=== PATIENT | female | born 1960 | race Caucasian/White ===

== ENCOUNTER 2019-12-16 11:32 | Outpatient (CLI) | payer MEDICAID, SELFPAY ==
--- NOTE | 2019-12-16 11:53 | XR_ITS ---
WS: [id number] PROCEDURE: XR chest 2V* [id number] CLINICAL INFORMATION: COUGH COMPARISON: None. FINDINGS: Heart: Cardiomegaly. Prominent left ventricle. Lungs: Chronic emphysematous changes. No acute pulmonary infiltrates. No focal pneumonia. Bones: Mild thoracic kyphosis. XR/XR chest 2V* [id number] IMPRESSION: 1. Cardiomegaly. 2. No focal pneumonia. 3. Chronic emphysematous changes.
== END 2019-12-16 11:33 | disposition home or self-care (01) ==
LOC: RADWPI 11:39
PROVIDERS: PCP Family Medicine; Visit Provider Specialist
DX: J43.9 Emphysema, unspecified (principal); R05 Cough; I51.7 Cardiomegaly
CPT/HCPCS: 71046

== ENCOUNTER 2020-04-11 13:57 | Outpatient (CLI) | payer MEDICAID, SELFPAY ==
--- NOTE | 2020-04-11 14:05 | ECG_ITS ---
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 Measurements Intervals [place] Rate: 82 P: 35 LA: 164 QRS: -20 QRSD: 78 T: 65 QT: 361 QTc: 422 Interpretive Statements SINUS RHYTHM MINIMAL VOLTAGE CRITERIA FOR LVH, CONSIDER NORMAL VARIANT [MEETS CRITERIA IN ONE OF: R(aVL), S(V1), R(V5), R(V5/V6)+S(V1)] POSSIBLE ANTERIOR MYOCARDIAL INFARCTION [30 ms Q WAVE IN V3/V4, OR R < 0.2 mV IN V4], PROBABLY OLD No previous ECG available for comparison Electronically Signed On 04-11-2020 16:56:20 CDT by Carmelo Frausto M.D. [id number]
[2020-04-11 14:45] LABS: Anion Gap 17.9 (5-19); Blood Urea Nitrogen 19 mg/dL (8-23); Calcium 9.5 mg/dL (8.5-10.5); Carbon Dioxide 22 mmol/L (22-29); Chloride 105 mmol/L (98-107); Glomerular Filtration Rate 63.9 mL/min (90-130); Glucose 131 mg/dL (65-115); Osmolality Calculated 290 mOsm/kg (285-295); Potassium 3.9 mmol/L (3.5-5.1); Sodium 141 mmol/L (136-145)
[2020-04-11 14:46] LABS: Eosinophils # 0.2 10^3/uL (0.0-0.8); Eosinophils % 5.6 %; Hematocrit 39.4 % (37.0-47.0); Hemoglobin 12.5 g/dL (11.5-15.3); Lymphocytes # 0.9 10^3/uL (0.8-4.8); Lymphocytes % 31.1 %; Mean Corpuscular HGB Conc 31.7 g/dL (30.0-36.0); Mean Corpuscular Hemoglobin 29.1 pg (28.0-34.0); Mean Corpuscular Volume 91.6 fL (81-99); Mean Platelet Volume 9.9 fL (7.4-10.4); Monocytes # 0.2 10^3/uL (0.2-0.9); Monocytes % 6.3 %; Neutrophils # 1.6 10^3/uL (1.8-7.7); Neutrophils % 55.7 %; Nucleated Red Blood Cells % 0 %; Platelet Count 179 10^3/cmm (130-400); Red Cell Distribution Width 13.8 % (12.1-15.1); White Blood Count 2.9 10^3/uL (4.0-10.0)
== END 2020-04-11 13:58 | disposition home or self-care (01) ==
PROVIDERS: PCP Family Medicine; Visit Provider Specialist
DX: Z01.810 Encounter for preprocedural cardiovascular examination (principal)
CPT/HCPCS: 36415; 80048; 85025; 93005

== ENCOUNTER 2020-04-17 12:30 | Emergency (ER) | payer MEDICAID, SELFPAY ==
[2020-04-17 12:37] VITALS: BP 188/94; PULSE 75; RESP 16; TEMP 36.8; O2SAT 97; BMI 39.9
--- NOTE | 2020-04-17 12:52 | ED_ITS ---
HPI - Skin/Abscess/Foreign Bdy General: Chief complaint: Skin/Abscess/Foreign Body Stated complaint: lump on posterior head/sent by urgent care Time Seen by Provider: 04/17/20 12:48 Source: patient Mode of arrival: ambulatory Limitations: no limitations History of Present Illness: HPI narrative: 59-year-old female who states she has had an abscess to the posterior scalp over the last 2 days. States she is also had some painful lymph nodes along the back of her neck. Denies any fever. States abscess is painful and rates her pain a 4 out of 10. She denies any vomiting or diarrhea. Denies any other abscesses at this time. MD complaint: abscess/boil Onset (ago): day(s) Tetanus up to date: yes Location: head Severity: moderate Relieving factors: none Exacerbating factors: none Associated symptoms: Deny chills, fever(s), nausea or vomiting Review of Systems Const: Denies: fever(s), chills, body aches or change in appetite Eyes: Denies: blurry vision or eye discomfort ENMT: Denies: throat pain or dental pain Card: Denies: chest pain Resp: Denies: dyspnea GI: Denies: abdominal pain, nausea, vomiting or diarrhea : Denies: dysuria Musc: Denies: neck pain or back pain Skin/Breast: Denies: rash Neuro: Denies: headache(s) Psych: Denies: depression Stone/Lymph: Denies: easy bruising All/Imm: Denies: urticaria PFSH ED PFSH: Social History (Updated 04/17/20 @ 12:42 by Teddy Sherman RN) Smoking and tobacco status: never smoked Alcohol intake: never Substance/Drug Use: never Physical Exam Const: COMMON NORMALS: no acute distress, patient oriented x3 and healthy appearing HENMT: COMMON NORMALS: normocephalic and atraumatic HEAD & SCALP: normocephalic and atraumatic OTHER: 2cm abscess to posterior scalp Eye: COMMON NORMALS: Equal, round and reactive pupils present and EOMs intact bilaterally PUPIL: Yes Equal, round and reactive pupils present Neck/C-Spine: COMMON NORMALS: full ROM and supple Chest: COMMONS NORMALS: normal inspection of the chest and normal palpation of entire chest wall Resp: COMMON NORMALS: normal respiratory effort, No retractions, No use of accessory muscles and clear to auscultation bilaterally AUSCULTATION: clear to auscultation bilaterally Cardio: COMMON NORMALS: regular rate, regular rhythm and No murmurs present (Cardio) RATE: regular rate RHYTHM: regular rhythm GI: COMMON NORMALS: Normal to inspection, nondistended, normoactive bowel sounds present, Soft to palpation, non-tender and no masses PALPATION: Yes Soft to palpation Extremity: COMMON NORMALS: normal to inspection and full ROM Neuro: COMMON NORMALS: patient oriented x3, moves all extremities and no focal motor deficits Psych: COMMON NORMALS: mental status grossly normal, Normal thought process present and cooperative THOUGHT PROCESS: Normal thought process present Skin: COMMON NORMALS: no rashes or lesions noted and no wounds GENERAL SKIN EXAM: no rashes or lesions noted Procedures Abscess I/D Site: scalp Local Anesthetic: lidocaine 1% Amount of anesthesia used (mL): 6 Technique: incised with #11 blade Packing used?: none Complications: pain Course Vital Signs: Vital signs: Vital Signs Temperature 98.3 F 04/17/20 12:37 Pulse Rate 75 04/17/20 12:37 Respiratory Rate 16 04/17/20 12:37 Blood Pressure 188/94 04/17/20 12:37 Pulse Oximetry 97 04/17/20 12:37 MDM - Skin/Abscess/Foreign Bdy MDM Narrative: Medical decision making narrative: Patient presents here with an abscess to her posterior scalp. Abscess was incised and drained. I believe her lymph nodes is likely from her abscess. Will place patient on antibiotics and she is to follow-up with her oncologist as well. She is return if worsening. Discharge Plan Discharge Patient Disposition: Home, Self-Care Clinical Impression: Abscess of skin or subcutaneous tissue Qualifiers: Site of cutaneous abscess: head Qualified Code(s): L02.811 - Cutaneous abscess of head [any part, except face] Condition: Stable Prescriptions: New Bactrim DS 800-160 mg tablet 1 tab PO BID 10 Days Qty: 20 RF: 0 Diflucan 150 mg tablet 150 mg PO DAILY Qty: 1 RF: 0 Discharge Orders: Discharge Order (Routine); Ordered 04/17/20 Ordered By: Yoly Bonner Referrals: Ligia Awad MD [Primary Care Provider] - 1-3 days Discharge Diet: Advance as tolerated Discharge Activity: Resume usual activity Patient Instructions: Abscess (ED) Coding Level of Care Code ED Managed Care Specialist for Hudson Jarrell
[2020-04-17 13:18] VITALS: BP 136/79; PULSE 65; RESP 17; O2SAT 97
== END 2020-04-17 13:22 | disposition home or self-care (01) ==
PROVIDERS: Emergency Provider Emergency Medicine; PCP Family Medicine
DX: L02.811 Cutaneous abscess of head [any part, except face] (principal)
CPT/HCPCS: 10060; 12345; 99281; 99282

== ENCOUNTER → 2021-11-21 09:53 | Outpatient (BNVA) | payer MEDICAID, SELFPAY | PROVIDERS: Referring Provider Nurse Practitioner Family; Visit Provider Orthopaedic Surgery | DX: M47.896 Other spondylosis, lumbar region (principal); M54.50 Low back pain, unspecified | CPT/HCPCS: 72110 ==

== ENCOUNTER → 2021-11-23 13:29 | Outpatient (BNVA) | payer MEDICAID, SELFPAY | PROVIDERS: PCP Nurse Practitioner Family; Referring Provider Orthopaedic Surgery; Visit Provider Anesthesiology Pain Medicine | DX: M43.16 Spondylolisthesis, lumbar region (principal); M47.816 Spondylosis without myelopathy or radiculopathy, lumbar region; M51.36 Other intervertebral disc degeneration, lumbar region; M79.604 Pain in right leg; M79.605 Pain in left leg; Z79.891 Long term (current) use of opiate analgesic | CPT/HCPCS: 99205 ==

== ENCOUNTER → 2021-12-04 14:01 | Outpatient (BNVA) | payer MEDICAID, SELFPAY | PROVIDERS: PCP Nurse Practitioner Family; Visit Provider Anesthesiology Pain Medicine | DX: M47.816 Spondylosis without myelopathy or radiculopathy, lumbar region (principal) | CPT/HCPCS: 64493; 64494; 64495; J3490 ==

== ENCOUNTER → 2021-12-19 09:06 | Outpatient (BNVA) | payer MEDICAID, SELFPAY | PROVIDERS: PCP Nurse Practitioner Family; Visit Provider Anesthesiology Pain Medicine | DX: M43.16 Spondylolisthesis, lumbar region (principal); M47.816 Spondylosis without myelopathy or radiculopathy, lumbar region; M51.36 Other intervertebral disc degeneration, lumbar region; M79.604 Pain in right leg; M79.605 Pain in left leg | CPT/HCPCS: 99214 ==

== ENCOUNTER → 2022-01-04 13:27 | Outpatient (BNVA) | payer MEDICAID, SELFPAY | PROVIDERS: PCP Nurse Practitioner Family; Visit Provider Anesthesiology Pain Medicine | DX: M47.816 Spondylosis without myelopathy or radiculopathy, lumbar region (principal) | CPT/HCPCS: 64635; 64636; J1030 ==

== ENCOUNTER → 2022-01-22 14:35 | Outpatient (BNVA) | payer MEDICAID, SELFPAY | PROVIDERS: PCP Nurse Practitioner Family; Visit Provider Anesthesiology Pain Medicine | DX: M43.16 Spondylolisthesis, lumbar region (principal); M47.816 Spondylosis without myelopathy or radiculopathy, lumbar region; M51.36 Other intervertebral disc degeneration, lumbar region; M79.604 Pain in right leg; M79.605 Pain in left leg | CPT/HCPCS: 99213 ==

== ENCOUNTER → 2022-03-19 10:10 | Outpatient (BNVA) | payer MEDICAID, SELFPAY | PROVIDERS: PCP Nurse Practitioner Family; Visit Provider Anesthesiology Pain Medicine | DX: M43.16 Spondylolisthesis, lumbar region (principal); M47.816 Spondylosis without myelopathy or radiculopathy, lumbar region; M51.36 Other intervertebral disc degeneration, lumbar region; M79.604 Pain in right leg; M79.605 Pain in left leg | CPT/HCPCS: 99212 ==

== ENCOUNTER → 2022-06-19 09:57 | Outpatient (BNVA) | payer MEDICAID, SELFPAY | PROVIDERS: PCP Nurse Practitioner Family; Visit Provider Anesthesiology Pain Medicine | DX: M43.16 Spondylolisthesis, lumbar region (principal); M47.816 Spondylosis without myelopathy or radiculopathy, lumbar region; M51.36 Other intervertebral disc degeneration, lumbar region; M79.604 Pain in right leg; M79.605 Pain in left leg | CPT/HCPCS: 99214 ==

== ENCOUNTER → 2022-07-09 14:34 | Outpatient (BNVA) | payer MEDICAID, SELFPAY | PROVIDERS: PCP Nurse Practitioner Family; Visit Provider Anesthesiology Pain Medicine | DX: M47.816 Spondylosis without myelopathy or radiculopathy, lumbar region (principal) | CPT/HCPCS: 64635; 64636; J1030 ==

== ENCOUNTER 2022-07-25 10:24 | Outpatient (CLI) | payer MEDICAID, SELFPAY ==
--- NOTE | 2022-07-25 10:33 | XRR_ITS ---
PROCEDURE INFORMATION: Exam: XR Right Ankle Exam date and time: 07/25/2022 10:33 AM Age: 61 years old Clinical indication: Pain; Ankle; Bilateral; Patient HX: HX of breast cancer; Additional info: M25.579 - pain in unspecified ankle and joints of unspeci. . . TECHNIQUE: Imaging protocol: Radiologic exam of the Right ankle. Views: 1 or 2 views. COMPARISON: No relevant prior studies available. FINDINGS: Bones/joints: Normal. Soft tissues: Normal. XR/XR ankle RT 2V [id number] IMPRESSION: No acute findings.
--- NOTE | 2022-07-25 10:33 | XRR_ITS ---
PROCEDURE INFORMATION: Exam: XR Left Ankle Exam date and time: 07/25/2022 10:33 AM Age: 61 years old Clinical indication: Pain; Ankle; Bilateral; Patient HX: HX of breast cancer; Additional info: M25.579 - pain in unspecified ankle and joints of unspeci. . . TECHNIQUE: Imaging protocol: Radiologic exam of the Left ankle. Views: 1 or 2 views. COMPARISON: No relevant prior studies available. FINDINGS: Bones/joints: Negative for acute bony abnormality Soft tissues: Unremarkable . XR/XR ankle LT 2V [id number] IMPRESSION: No acute findings.
== END 2022-07-25 10:25 | disposition home or self-care (01) ==
LOC: RAD 10:26
PROVIDERS: PCP Nurse Practitioner Family; Visit Provider Anesthesiology Pain Medicine
DX: G89.29 Other chronic pain (principal); M43.16 Spondylolisthesis, lumbar region; M47.816 Spondylosis without myelopathy or radiculopathy, lumbar region; M51.36 Other intervertebral disc degeneration, lumbar region; M25.571 Pain in right ankle and joints of right foot; M25.572 Pain in left ankle and joints of left foot
CPT/HCPCS: 73600; 99214

== ENCOUNTER → 2022-08-21 09:02 | Outpatient (BNVA) | payer MEDICAID, SELFPAY | PROVIDERS: PCP Nurse Practitioner Family; Visit Provider Podiatrist Foot & Ankle Surgery | DX: M25.572 Pain in left ankle and joints of left foot (principal); M25.571 Pain in right ankle and joints of right foot; G89.29 Other chronic pain; M76.822 Posterior tibial tendinitis, left leg; M95.8 Other specified acquired deformities of musculoskeletal system | CPT/HCPCS: 73610; 99204 ==

== ENCOUNTER 2022-08-21 14:49 | Outpatient (CLI) | payer MEDICAID, SELFPAY | END 2022-08-21 14:50 | disposition home or self-care (01) | LOC: SPT 14:50 | PROVIDERS: PCP Nurse Practitioner Family; Visit Provider Podiatrist Foot & Ankle Surgery | DX: Z46.89 Encounter for fitting and adjustment of other specified devices (principal); M25.572 Pain in left ankle and joints of left foot | CPT/HCPCS: 97760; L1902 ==

== ENCOUNTER 2022-10-03 09:13 | Outpatient (CLI) | payer MEDICAID, SELFPAY ==
--- NOTE | 2022-10-03 09:30 | MR_ITS ---
WS: [id number] MRI LEFT ANKLE WITHOUT AND WITH GADOLINIUM ENHANCEMENT. INDICATION: LEFT ankle pain TECHNIQUE: Axial T1, axial PD, sagittal PD, sagittal STIR, coronal T2 fat sat, coronal T1, post gadol inium imaging was obtained with fat saturation technique. FINDINGS: Diffuse thickening with increased signal involving the tibialis posterior tendon compatible with tendinopathy. Associated tenosynovitis with fluid and edema along the tendon sheath. Intrasubst ance split tear distally. Flexor impression and extensor compartment tendons are normal. Diffuse rosanna a involving the deltoid ligament suspicious for ligamentous injury. Normal anatomic alignment. No acute fractures. Split tear involving the peroneal brevis. Tenosynoviti s along the peroneal tendon sheath. Distal Achilles is intact. Normal bone marrow signal involving th e dorsal calcaneus. Normal plantar aponeurosis. Normal bone marrow signal in the lateral malleolus an d distal fibula. Patchy edema within the distal tibial plafond and extending into the medial malleolus. Patchy edema i n the underlying navicular and sustentaculum kaylen. Edema at the talonavicular articulation and dorsal navicular. Small amount of edema in the anterior process of the calcaneus extending into the cuboid. MR/MR ankle LT wo/w con [id number] IMPRESSION: 1. Diffuse increased signal abnormality involving the tibialis posterior with tenosynovitis and tendinopathy. Longitudinal split tear involving the distal te ndon. 2. Increased T2 signal involving the deltoid ligament suspicious for ligamento us injury. 3. Ankle mortise appears preserved. 4. Edema within the distal tibial plafond extending into the medial malleolus. Additional patchy areas of edema involving the sustentaculum kaylen, Talonavicul ar articulation, and Calcaneal cuboid articulation likely due to degenerative c hange/stress reaction or contusion. 5. Distal Achilles is normal in appearance. 6. Split tear involving the peroneal brevis. Tenosynovitis along the peroneal tendon sheath.
[2022-10-03] MEDS: gadobenate dimeglumine 20 mL vial IV (09:59)
== END 2022-10-03 09:14 | disposition home or self-care (01) ==
PROVIDERS: PCP Nurse Practitioner Family; Visit Provider Podiatrist Foot & Ankle Surgery
DX: G89.29 Other chronic pain; M76.822 Posterior tibial tendinitis, left leg; M95.8 Other specified acquired deformities of musculoskeletal system; S86.312A Strain of muscle(s) and tendon(s) of peroneal muscle group at lower leg level, left leg, initial encounter; X58.XXXA Exposure to other specified factors, initial encounter; R60.0 Localized edema
CPT/HCPCS: 73723; 99204; A9577

== ENCOUNTER → 2023-01-10 10:04 | Outpatient (BNVA) | payer MEDICAID, SELFPAY | PROVIDERS: PCP Nurse Practitioner Family; Visit Provider Anesthesiology Pain Medicine | DX: G89.29 Other chronic pain (principal); M43.16 Spondylolisthesis, lumbar region; M47.816 Spondylosis without myelopathy or radiculopathy, lumbar region; M51.36 Other intervertebral disc degeneration, lumbar region; M25.571 Pain in right ankle and joints of right foot; M25.572 Pain in left ankle and joints of left foot | CPT/HCPCS: 99214 ==

== ENCOUNTER → 2023-01-24 13:19 | Outpatient (BNVA) | payer MEDICAID, SELFPAY | PROVIDERS: PCP Nurse Practitioner Family; Visit Provider Anesthesiology Pain Medicine | DX: M54.16 Radiculopathy, lumbar region (principal); M54.12 Radiculopathy, cervical region | CPT/HCPCS: 62323; 72050; J1040 ==

== ENCOUNTER → 2023-01-29 15:19 | Outpatient (BNVA) | payer MEDICAID, SELFPAY | PROVIDERS: PCP Nurse Practitioner Family; Visit Provider Podiatrist Foot & Ankle Surgery | DX: Q82.8 Other specified congenital malformations of skin (principal) | CPT/HCPCS: 17110 ==

== ENCOUNTER → 2023-02-07 09:51 | Outpatient (BNVA) | payer MEDICAID, SELFPAY | PROVIDERS: PCP Nurse Practitioner Family; Visit Provider Anesthesiology Pain Medicine | DX: G89.29 Other chronic pain (principal); M43.16 Spondylolisthesis, lumbar region; M47.816 Spondylosis without myelopathy or radiculopathy, lumbar region; M51.36 Other intervertebral disc degeneration, lumbar region; M47.812 Spondylosis without myelopathy or radiculopathy, cervical region; M25.571 Pain in right ankle and joints of right foot; M25.572 Pain in left ankle and joints of left foot | CPT/HCPCS: 99214 ==

== ENCOUNTER → 2023-02-12 09:54 | Outpatient (BNVA) | payer MEDICAID, SELFPAY | PROVIDERS: PCP Nurse Practitioner Family; Visit Provider Podiatrist Foot & Ankle Surgery | DX: Q82.8 Other specified congenital malformations of skin (principal); M76.822 Posterior tibial tendinitis, left leg | CPT/HCPCS: 99213 ==

== ENCOUNTER → 2023-03-06 13:40 | Outpatient (BNVA) | payer MEDICAID, SELFPAY | PROVIDERS: PCP Nurse Practitioner Family; Visit Provider Anesthesiology Pain Medicine | DX: M47.816 Spondylosis without myelopathy or radiculopathy, lumbar region (principal) | CPT/HCPCS: 64635; 64636; J1030 ==

== ENCOUNTER → 2023-03-20 10:08 | Outpatient (BNVA) | payer MEDICAID, SELFPAY | PROVIDERS: PCP Nurse Practitioner Family; Visit Provider Anesthesiology Pain Medicine | DX: G89.29 Other chronic pain (principal); M43.16 Spondylolisthesis, lumbar region; M47.816 Spondylosis without myelopathy or radiculopathy, lumbar region; M51.36 Other intervertebral disc degeneration, lumbar region; M25.571 Pain in right ankle and joints of right foot; M25.572 Pain in left ankle and joints of left foot; M47.812 Spondylosis without myelopathy or radiculopathy, cervical region | CPT/HCPCS: 99213; 99214 ==

== ENCOUNTER → 2023-06-05 08:29 | Outpatient (BNVA) | payer MEDICAID, SELFPAY | PROVIDERS: PCP Nurse Practitioner Family; Visit Provider Anesthesiology Pain Medicine | DX: M51.36 Other intervertebral disc degeneration, lumbar region (principal); M47.816 Spondylosis without myelopathy or radiculopathy, lumbar region; M43.16 Spondylolisthesis, lumbar region; M25.571 Pain in right ankle and joints of right foot; M25.572 Pain in left ankle and joints of left foot; G89.29 Other chronic pain; M47.812 Spondylosis without myelopathy or radiculopathy, cervical region | CPT/HCPCS: 99215 ==

== ENCOUNTER 2023-07-02 15:43 | Outpatient (CLI) | payer MEDICAID, SELFPAY ==
--- NOTE | 2023-07-02 16:00 | MR_ITS ---
WS: [id number] MRI LUMBAR SPINE NONCONTRAST HISTORY: Chronic back pain COMPARISON: 09/01/2021 TECHNIQUE: Sagittal and axial multisequence imaging is submitted. Mild increase in the lumbar lordosis, similar to the prior study. L4 anterolisthesis by 2 mm. Mixed s ignal within the L3 vertebral body is similar to the prior study. 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 Mild disc desiccation. No significant loss of height. Conus terminates normally at L1-2 disc level. L1-L2: Normal. L2-L3: Mild annular disc bulging with a central disc protrusion. Mild ligamentum flavum and facet art hritis. There is mild encroachment upon the ventral thecal sac, subarticular recesses and foramina. V humera shallow bilateral foraminal disc protrusions. L3-L4: Mild annular disc bulging with mild ligamentum flavum and facet arthritis. Mild encroachment u ayla the ventral thecal sac and mild foraminal narrowing. No high-grade stenosis. L4-L5: Mild diffuse annular disc bulging. Ligamentum flavum hypertrophy and moderate facet arthritis. There is mild disc encroachment upon the traversing L5 nerve roots. Slightly greater contact on the LEFT. Very mild central, bilateral subarticular recess and foraminal stenosis. L5-S1: No stenosis. Paravertebral soft tissues are normal. IMPRESSION: 1. No central or foraminal high-grade stenosis. 2. Multilevel facet arthritis. Most significant facet joint arthritis is at L4-5. 3. L2-3: Mild disc encroachment upon the ventral thecal sac, subarticular recesses and narrowing of t he foramina. Very shallow bilateral foraminal disc protrusions. 4. L3-4: Mild encroachment upon the ventral thecal sac and foramina due to disc bulging. 5. Mild central, bilateral subarticular recess and foraminal stenosis slightly greater disc contactin g the traversing LEFT L5 nerve root.
== END 2023-07-02 15:44 | disposition home or self-care (01) ==
PROVIDERS: PCP Nurse Practitioner Family; Visit Provider Anesthesiology Pain Medicine
DX: M47.816 Spondylosis without myelopathy or radiculopathy, lumbar region (principal); M51.36 Other intervertebral disc degeneration, lumbar region; M47.896 Other spondylosis, lumbar region
CPT/HCPCS: 72148

== ENCOUNTER → 2023-07-08 08:53 | Outpatient (BNVA) | payer MEDICAID, SELFPAY | PROVIDERS: PCP Nurse Practitioner Family; Visit Provider Anesthesiology Pain Medicine | DX: M43.16 Spondylolisthesis, lumbar region; M47.816 Spondylosis without myelopathy or radiculopathy, lumbar region; M51.36 Other intervertebral disc degeneration, lumbar region; M25.571 Pain in right ankle and joints of right foot; M25.572 Pain in left ankle and joints of left foot; G89.29 Other chronic pain; M47.812 Spondylosis without myelopathy or radiculopathy, cervical region | CPT/HCPCS: 99214 ==

== ENCOUNTER → 2023-08-07 09:29 | Outpatient (BNVA) | payer MEDICAID, SELFPAY | PROVIDERS: PCP Nurse Practitioner Family; Visit Provider Anesthesiology Pain Medicine | DX: M43.16 Spondylolisthesis, lumbar region (principal); M47.816 Spondylosis without myelopathy or radiculopathy, lumbar region; M51.36 Other intervertebral disc degeneration, lumbar region; M25.571 Pain in right ankle and joints of right foot; M25.572 Pain in left ankle and joints of left foot; G89.29 Other chronic pain; M47.812 Spondylosis without myelopathy or radiculopathy, cervical region | CPT/HCPCS: 99214 ==

== ENCOUNTER → 2023-09-23 14:44 | Outpatient (BNVA) | payer MEDICAID, SELFPAY | PROVIDERS: PCP Nurse Practitioner Family; Visit Provider Anesthesiology Pain Medicine | DX: M51.36 Other intervertebral disc degeneration, lumbar region (principal); M47.816 Spondylosis without myelopathy or radiculopathy, lumbar region; M54.16 Radiculopathy, lumbar region; M43.16 Spondylolisthesis, lumbar region; M25.571 Pain in right ankle and joints of right foot; M25.572 Pain in left ankle and joints of left foot; G89.29 Other chronic pain; M47.812 Spondylosis without myelopathy or radiculopathy, cervical region | CPT/HCPCS: 99214 ==

== ENCOUNTER → 2023-11-14 09:45 | Outpatient (BNVA) | payer MEDICAID, SELFPAY | PROVIDERS: PCP Nurse Practitioner Family; Visit Provider Orthopaedic Surgery | DX: M43.16 Spondylolisthesis, lumbar region (principal) | CPT/HCPCS: 72120; 99214 ==

== ENCOUNTER → 2023-11-21 10:15 | Outpatient (BNVA) | payer MEDICAID, SELFPAY | PROVIDERS: PCP Nurse Practitioner Family; Visit Provider Anesthesiology Pain Medicine | DX: M43.16 Spondylolisthesis, lumbar region (principal); M47.816 Spondylosis without myelopathy or radiculopathy, lumbar region; M51.36 Other intervertebral disc degeneration, lumbar region; M25.571 Pain in right ankle and joints of right foot; M25.572 Pain in left ankle and joints of left foot; G89.29 Other chronic pain; M47.812 Spondylosis without myelopathy or radiculopathy, cervical region | CPT/HCPCS: 99214 ==

== ENCOUNTER → 2023-12-16 14:19 | Outpatient (BNVA) | payer MEDICAID, SELFPAY | PROVIDERS: PCP Nurse Practitioner Family; Visit Provider Podiatrist Foot & Ankle Surgery | DX: Q82.8 Other specified congenital malformations of skin (principal); M76.822 Posterior tibial tendinitis, left leg; M79.671 Pain in right foot | CPT/HCPCS: 17110 ==

== ENCOUNTER → 2023-12-30 14:48 | Outpatient (BNVA) | payer MEDICAID, SELFPAY | PROVIDERS: PCP Nurse Practitioner Family; Visit Provider Podiatrist Foot & Ankle Surgery | DX: Q82.8 Other specified congenital malformations of skin (principal); M76.822 Posterior tibial tendinitis, left leg; M79.671 Pain in right foot | CPT/HCPCS: 17110 ==

== ENCOUNTER → 2024-01-14 13:03 | Outpatient (BNVA) | payer MEDICAID, SELFPAY | PROVIDERS: PCP Nurse Practitioner Family; Visit Provider Podiatrist Foot & Ankle Surgery | DX: Q82.8 Other specified congenital malformations of skin (principal); M76.822 Posterior tibial tendinitis, left leg; M79.671 Pain in right foot | CPT/HCPCS: 99213 ==

== ENCOUNTER → 2024-01-21 10:16 | Outpatient (BNVA) | payer MEDICAID, SELFPAY | PROVIDERS: PCP Nurse Practitioner Family; Visit Provider Anesthesiology Pain Medicine | DX: M43.16 Spondylolisthesis, lumbar region (principal); M47.816 Spondylosis without myelopathy or radiculopathy, lumbar region; M51.36 Other intervertebral disc degeneration, lumbar region; M25.571 Pain in right ankle and joints of right foot; M25.572 Pain in left ankle and joints of left foot; G89.29 Other chronic pain; M47.812 Spondylosis without myelopathy or radiculopathy, cervical region | CPT/HCPCS: 99214 ==

== ENCOUNTER → 2024-02-04 15:07 | Outpatient (BNVA) | payer MEDICAID, SELFPAY | PROVIDERS: PCP Nurse Practitioner Family; Visit Provider Orthopaedic Surgery | DX: M51.36 Other intervertebral disc degeneration, lumbar region (principal); M54.9 Dorsalgia, unspecified; M43.16 Spondylolisthesis, lumbar region | CPT/HCPCS: 36415; 80053; 81001; 85025; 87086; 99214 ==

== ENCOUNTER → 2024-02-14 10:19 | Outpatient (BNVA) | payer MEDICAID, SELFPAY | PROVIDERS: PCP Nurse Practitioner Family; Visit Provider Family Medicine | DX: Z01.818 Encounter for other preprocedural examination (principal) | CPT/HCPCS: 81003 ==

== ENCOUNTER 2024-03-04 17:41 | Inpatient (IN) | payer MEDICAID, SELFPAY ==
[2024-03-04] VITALS (34 sets, daily range): BP systolic 85–181; BP diastolic 44–79; PULSE 45–98; RESP 14–22; TEMP 36.5–36.8; O2SAT 88–100; BMI 36.6
--- NOTE | 2024-03-04 | XR_ITS ---
WS: [id number] C-ARM RADIOGRAPHS LUMBOSACRAL REGION.; 4 IMAGES HISTORY: GHISLAINE PICS COMPARISON: None available. Extensive fusion hardware noted over the lower lumbar spine into the sacrum. XR/XR lumbar spine 2-3V* [id number] IMPRESSION: Intraoperative imaging during lumbosacral fusion.
[2024-03-04] MEDS: scopolamine 1.5 Patch 1 PATCH TRANSDERMA (11:21)
[2024-03-04] MEDS: sodium chloride 0.9% 1,000 ML 30 ML IV (11:21)
--- NOTE | 2024-03-04 11:55 | W.PM.OPSUD ---
Surgery/Procedure H&P Update DATE OF PROCEDURE: March 04, 2024 DATE H&P PERFORMED: 02/14/24 H&P UPDATE INFORMATION: I have reviewed H&P completed within last 30 days, I have examined patient prior to procedure and No changes to prior documentation PREOP DIAGNOSIS: Lumbar stenosis with neurogenic claudication PLANNED PROCEDURE: Operation Date: 03/04/24 12:15 Proposed Procedures p Spinal Fusion PSF(Not Applicable) - Jhon Flanagan DO s Posterior Lumbar Interbody Fusion PLIF(Not Applicable) - Jhon Flanagan DO s Lumbopelvic Fixation(Not Applicable) - DO stacie Chery Sacroiliac Joint Fusion(Bilateral) - DO stacie Chery Lumbar Spine Decompression Lumbar Decompression(Not Applicable) - Jhon Flanagan DO
--- NOTE | 2024-03-04 12:17 | ANES.PREANE2 ---
Pre-Anesthetic Assessment Height/Weight: Height 1.65 m Weight 99.79 kg Temp Pulse Resp BP Pulse Ox O2 Del Method 97.7 F 45 L 18 141/75 98 Room Air 03/04/24 10:50 03/04/24 10:50 03/04/24 10:50 03/04/24 10:50 03/04/24 10:50 03/04/24 10:51 Preop Diagnosis: Lumbar stenosis with neurogenic claudication Operation Date: 03/04/24 12:15 Proposed Procedures p Spinal Fusion PSF(Not Applicable) - Jhon Flanagan DO s Posterior Lumbar Interbody Fusion PLIF(Not Applicable) - Jhon Flanagan, s Lumbopelvic Fixation(Not Applicable) - Jhon Flanagan DO s Sacroiliac Joint Fusion(Bilateral) - Jhon Flanagan DO s Lumbar Spine Decompression Lumbar Decompression(Not Applicable) - Jhon Flanagan DO Familial anesthetic complications: None Was Beta Jessica taken within 24 hours: N/A Was Clonidine taken within 24 hours: N/A Last intake: Intake Last Liquid Date 03/03/24 Last Liquid Time 22:00 Last Solid Date 03/03/24 Last Solid Time 17:30 Social No alcohol and No tobacco Exam alert, oriented x 3, clear to auscultation bilaterally and regular rate & rhythm Airway Mallampati: Class II Dentition: partials CV/HEM Hypertension GI Gastroesophageal Reflux Disease Metabolic Thyroid Disease Anesthetic Plan ASA status: 3 Anesthesia: General Risk of > 500 ml blood loss (7ml/kg in children): Yes, adequate IV access and fluids planned Medications/Allergies Home Medications Medication Instructions Recorded Confirmed Last Taken Type amlodipine 5 mg tablet 10 mg PO QPM 12/19/21 03/03/24 03/02/24 History metoprolol succinate 50 mg 50 mg PO QPM 12/19/21 03/03/24 03/03/24 History tablet,extended release 24 hr diclofenac sodium 75 mg 75 mg PO BID 07/25/22 03/03/24 02/25/24 History tablet,delayed release topiramate 25 mg tablet (Topamax) 25 mg PO QPM 02/07/23 03/03/24 03/02/24 History tramadol 50 mg tablet 50 mg PO BID PRN pain #60 tabs 01/21/24 03/03/24 03/03/24 Rx cephalexin 500 mg capsule 500 mg PO DAILY 02/14/24 03/03/24 03/03/24 History cetirizine 10 mg tablet 10 mg PO DAILY 02/14/24 03/03/24 03/02/24 History levothyroxine 75 mcg tablet 75 mcg PO DAILY 02/14/24 03/04/24 03/04/24 History oxybutynin chloride 5 mg 5 mg PO QPM 02/14/24 03/03/24 03/02/24 History tablet,extended release 24 hr pantoprazole 40 mg tablet,delayed 40 mg PO QPM 02/14/24 03/03/24 03/02/24 History release gabapentin 300 mg capsule 600 mg PO QPM pain 03/03/24 03/03/24 03/02/24 History Allergies Allergy/AdvReac Type Severity Reaction Status Date / Time hydrocodone Allergy ADR-Vomitin Verified 03/03/24 11:30 g Penicillins Allergy Unknown Verified 03/03/24 11:30 Current Medications Generic Name Dose Route Start Last Admin Trade Name Philipq PRN Reason Stop Dose Admin Sodium Chloride 1,000 mls @ 30 mls/hr 03/04/24 10:45 03/04/24 11:21 Sodium Chloride 0.9% IV 03/05/24 10:44 30 mls/hr .Q24H AL Administration PFSH Anesthesia Medical History HTN (hypertension) Hx of breast cancer Surgical History S/P mastectomy, bilateral Family History Other CAD (coronary artery disease) Myocardial infarction Shingles Stroke Social History Smoking and tobacco/nicotine status: never used tobacco/nicotine Second hand smoke exposure: No Alcohol intake: never Substance/Drug Use: never Data Anesthesia Cardiac Studies: No Data to Display
[2024-03-04] MEDS: clindamycin 900 MG/50 ML PREMIX 100 MG IV (12:37)
[2024-03-04] MEDS: vancomycin 1,000 MG SDV 1000 MG XX (13:25)
[2024-03-04] MEDS: lidocaine-epi 1% 20 mL INJ INJECTION (13:26)
[2024-03-04] MEDS: heparin, porcine 1,000 unit/mL INJ 10 mL 10000 UNIT IRRIGATION (13:26)
--- NOTE | 2024-03-04 14:07 | PC.NURSE ---
Patient's toe ring removed post intubation and given to family member. Petechia noted on patients left breast/chest area pre positioning.
--- NOTE | 2024-03-04 16:33 | P.OP_ITS ---
Operative Report Date of procedure: March 04, 2024 Pre-op diagnosis: L4-5 spondylolisthesis Post-op diagnosis: same Surgeon: Jhon Flanagan, DO Procedure: 1.?L5/S1 interbody fusion with posterolateral fusion 2. Cage at L5/S1 3. L4/5 Interbody fusion with posterolateral fusion 4. Cage L4/5 5. Posterior fusion L4-pelvis 6.? Instrumentation L4-S1 7.? Lumbopelvic instrumentation 8. open right Sacral iliac fusion 9. open left sacral iliac fusion 10. L5-S1 laminectomy with facetectomies 11. L4-5 laminectomy with facetectomies 12. use of computer navigation / stereotactic spine 13. use of autograft from same incision 14. allograft 15. Bone marrow aspirate from right iliac crest Patient is brought to the operative suite.? After undergoing anesthesia, the patient had neuro monitoring attached.? Patient was then placed in the prone position on the Sam table.? All areas of impingement were well-padded.? Patient was then prepped and draped in the normal sterile fashion.? Skin incision was then made over the L1 to the sacrum using previous skin incision.? Subperiosteal dissection was made out to the transverse processes of L4 bilaterally L5 bilaterally and sacral ala bilaterally.? The [employer] bone marrow aspirate kit was used to aspirate bone marrow aspirate.? This was done by using the sharp probe to open up the bone.? Aspiration was performed and then the blunt probe was then used to dissect down to through the bone tunnel.? An aspirating well drawn back a millimeter approximately 20 cc of bone marrow aspirate was used.? Admixed with the allograft and autograft bone that will be used. Next tension was brought to placing the fiducial for the computer navigation.? 2 pins were placed into the right iliac crest.? The fiducial was attached.? The C- arm was brought in and information from the C arm was then linked to the computer used for placing the screws.? Next attention was brought to placing the pedicle screws.? This was done by u sing the gearshift probe linked to computer navigation.? The probe was used to identify the pedicle.? Then the pedicle feeler was used followed by placement of screw.? This was done at L4 bilaterally, L5 bilaterally and S1 bilaterally. Next attension was brought to placing the iliac screws.? This was done using the sacral ala iliac technique.? The gearshift probe linked to computer navigation was then placed through the sacral ala into the sacroiliac joint into the iliac crest.? Next the pedicle feeler was used followed by the computer navigated tap.? And then the screw was passed a 90 mm screw was placed on the right side and a 90 mm screw was placed on the left side.? Both the screws were 9.5 mm in diameter. Next attension was brought to performing the open and sacral iliac fusion.? This was done by again using the gearshift probe linked to computer navigation.? Followed by pedicle feeler followed by placing a wire and then the drill drilled over the wire and then bone graft was packed into the sacroiliac joint and into the drill hole.? And the sacroiliac screw was then placed.? This technique was done on both the right and left side. Next attention was brought to performing the laminectomy of L5. This was done using the high-speed bur Kerrisons and curettes. Once the lamina was removed and then attention was brought to performing a partial facetectomy on the contralateral side. This was done again using the high-speed bur curettes and Kerrisons. The ligamentum flavum was taken down bilaterally from L5 to S1. Attention was then brought to the facet on the ipsilateral side. The facet was taken down. The s1 nerve was decompressed as it passed around the S1 pedicle. The laminectomy was done for purposes of decompressing the nerve as well as placement of the cage. The L5 nerve was identified as it traversed through the L5/s1 foramen. The thecal sac was identified and retracted. The L5/S1 disc base was identified. Using a knife the disc base was opened. And then sequential christine were placed. The first shaver was a 6 and the last shaver was a 10. Using a pituitary and down going curette the endplates were scraped and disc material was removed from the space. Once adequate decompression of the disc base was felt to be had. Osteoamp sponge was packed into the anterior aspect of the disc base. Then a size 11 cage from [employer] was placed after packing osteoamp into the cage. While placing the cage the thecal sac and S1 nerve was protected. C arm was used to ensure that the cages placed in the appropriate position. Next attention was brought to performing the laminectomy of L4. This was done using the high-speed bur Kerrisons and curettes. Once the lamina was removed and then attention was brought to performing a partial facetectomy on the contralateral side. This was done again using the high-speed bur curettes and Kerrisons. The ligamentum flavum was taken down bilaterally from L4 to L5. Attention was then brought to the facet on the ipsilateral side. The facet was taken down. The L5 nerve was decompressed as it passed around the L5 pedicle. The laminectomy was done for purposes of decompressing the nerve as well as placement of the cage. The L4 nerve was identified as it traversed through the L4/L5 foramen. The thecal sac was identified and retracted. The L4/5 disc space was identified. Using a knife the disc base was opened. And then sequential christine were placed. The first shaver was a 6 and the last shaver was a 10. Using a pituitary and down going curette the endplates were scraped and disc material was removed from the space. Once adequate decompression of the disc base was felt to be had. Osteoamp sponge was packed into the anterior aspect of the disc base. Then a size 11 cage from [employer] was placed after packing osteoamp into the cage. While placing the cage the thecal sac and L5 nerve was protected. C arm was used to ensure that the cages placed in the appropriate position. Prior to placing the cage there was a small hole made with a drill in the dura. This was repaired using a Nurolon stitch which had watertight closure. Attention was then brought to attaching the rods to the screws placed in theL4 bilaterally, L5 bilaterally and S1 bilaterally.? This was then attached to the sacroiliac screw providing the lumbopelvic fixation.? Caps were torqued into position. Locking the construct in place. Wound was copiously irrigated and then attention was brought to decorticating the facets and transverse processes laterally.? Bone that was taken down from the lamina was used along with osteoamp fibers and sponges were packed into the lateral gutters along the facet joints.? This was done bilaterally. Wound was then closed in a layered fashion starting with the thoracolumbar fascia.? 0-vicryl was used the sub cutaneous tissue was closed with 2-0 vicryl and skin with 4-0 monocryl.? Glue was then used to seal the skin and a steril dressing was applied.? Patient was then placed in the supine position. The endotracheal tube was removed and patient was transferred to the PACU in stable condition.
[2024-03-04] MEDS: fentaNYL 50 mcg/mL INJ 2mL IVP (17:06)
[2024-03-04 18:02] LABS: Hematocrit 25.6 % (36-47)
--- NOTE | 2024-03-04 18:45 | ANE.PACU2 ---
Inpatient post-anesthesia follow up: Airway intact: Yes Vital signs: Temperature 98.3 F Pulse Rate 78 Respiratory Rate 16 Blood Pressure 117/68 Pulse Oximetry 97 Oxygen Delivery Me thod Nasal Cannula Oxygen Flow Rate 2 Fraction of Inspir ed Oxygen Hydration adequate: Yes Nausea and vomiting: No Pain level: 1 Mental status: Baseline
--- NOTE | 2024-03-04 20:58 | PC.NURSE ---
Addendum entered by Dennis Connor RN 03/04/24 21:03: Orders also received to reinforce dressing if saturation occurs. Original Note: was notified that pts blood pressure dropped post opt per vitals documented and dayshift nursing reports. Orders were received to hold Amlodipine and Metoprolol tonight. was also notified that pt complains of left leg numbness and pulse was not able to be palpated and is faint upon Doppler. No new orders received for the leg numbness. Orders were also received to give one unit of PRBC if 2200 Hemoglobin is less than 8.
[2024-03-04] MEDS: gabapentin 300 mg Capsule 600 MG PO (21:11)
[2024-03-04] MEDS: oxybutynin chloride XL 5 MG TABLET PO (21:13)
[2024-03-04] MEDS: docusate sodium 100 mg Capsule PO (21:13)
[2024-03-04] MEDS: topiramate 25 mg Tablet PO (21:14)
[2024-03-04] MEDS: pantoprazole DR 40 mg Tablet PO (21:14)
[2024-03-04] MEDS: ceFAZolin 2,000 MG in sodium chloride 0.9% (plus) 50 ML 100 MG IV (21:23)
[2024-03-04] MEDS: lactated ringers 1,000 ML 90 ML IV (21:24)
[2024-03-04] MEDS: ketorolac 30 mg/mL INJ IVP (21:28)
[2024-03-04] MEDS: morphine 4 mg/mL SDV 1 mL 2 MG IVP (22:45)
[2024-03-04 22:52] LABS: Hematocrit 30.7 % (36-47)
[2024-03-05] VITALS (12 sets, daily range): BP systolic 85–127; BP diastolic 52–87; PULSE 77–113; RESP 15–18; TEMP 36.6–36.8; O2SAT 90–100
[2024-03-05] MEDS: ondansetron 2 mg/ML SDV 2 mL 4 MG IVP (03:41)
[2024-03-05] MEDS: morphine 4 mg/mL SDV 1 mL 2 MG IVP ×2 (03:43→08:23)
[2024-03-05] MEDS: ceFAZolin 2,000 MG in sodium chloride 0.9% (plus) 50 ML 100 MG IV ×2 (04:15→11:49)
[2024-03-05] MEDS: docusate sodium 100 mg Capsule PO ×2 (08:19→17:22)
[2024-03-05] MEDS: cetirizine 10 mg Tablet PO (08:19)
[2024-03-05] MEDS: lactated ringers 1,000 ML 90 ML IV ×2 (09:01→20:20)
--- NOTE | 2024-03-05 09:41 | P.PN_ITS ---
Subjective 2 Subjective: Patient is having left leg numbness. Otherwise pain is somewhat controlled. Hemovac drain slowly decreasing. Vitals/I&O/Wt Last Vital Signs Temp 98.3 F 03/05/24 07:24 Pulse 78 03/05/24 07:24 Resp 16 03/05/24 08:23 BP 117/68 03/05/24 07:24 Pulse Ox 97 03/05/24 07:24 O2 Del Method Nasal Cannula 03/05/24 07:24 O2 Flow Rate 2 03/05/24 07:24 03/04/24 03/05/24 03/05/24 22:59 06:59 14:59 Intake Total 4050 / 4100 410 / 4510 1000 / 1000 Output Total 1490 / 1490 1085 / 2575 Balance 2560 / 2610 -675 / 1935 1000 / 1000 Weight last 48 hrs Weight 232 lb 14.4 oz Weight 220 lb Physical Exam 2 Narrative: Patient has 5 or 5 motor strength bilateral lower extremities both feet are warm. Urinary Catheter Management: Yu: Cath Placed During This Visit: yes Reason for Continuing Indwelling Catheter: Other Urinary Catheter Date of Insertion: 03/04/24 Urinary Catheter Time of Insertion: 12:50 Data 03/04/24 22:25 A&P Assessment and plan (1) Status post lumbar spinal fusion: Postop day #1 L4 to pelvis fusion. Up with physical therapy DC Yu Keep Hemovac drain in 1 more day Will increase Neurontin to 600 3 times daily for the left leg numbness. Attestations 2 Medical Necessity Statement*: Pain Coding Level of Care Code Acute Code for Chg Fwd Diagnoses Status post lumbar spinal fusion Z98.1
[2024-03-05] MEDS: levothyroxine 75 mcg Tablet PO (09:53)
[2024-03-05] MEDS: ketorolac 30 mg/mL INJ IVP (11:00)
[2024-03-05] MEDS: oxyCODONE-APAP 5-325 mg Tablet PO ×3 (12:43→23:20)
[2024-03-05] MEDS: gabapentin 300 mg Capsule 600 MG PO ×2 (15:36→20:19)
[2024-03-05] MEDS: pantoprazole DR 40 mg Tablet PO (17:22)
[2024-03-05] MEDS: oxybutynin chloride XL 5 MG TABLET PO (17:22)
[2024-03-05] MEDS: amlodipine 10 mg Tablet PO (17:22)
[2024-03-05] MEDS: topiramate 25 mg Tablet PO (17:22)
[2024-03-06] VITALS: BP 123/70; PULSE 109; RESP 18; TEMP 38.7; O2SAT 91
[2024-03-06 04:00] VITALS: BP 91/57; PULSE 113; RESP 18; TEMP 37.9; O2SAT 91
[2024-03-06 04:53] VITALS: RESP 18
[2024-03-06] MEDS: oxyCODONE-APAP 5-325 mg Tablet PO ×2 (04:53→08:56)
--- NOTE | 2024-03-06 07:23 | P.DS_ITS ---
Discharge Providers Date of Admission: 03/04/24 17:41 Date of Discharge: March 06, 2024 Attending Provider at Admission: Jhon Flanagan DO Attending Provider at Discharge: Jhon Flanagan DO Primary Care Provider: Dana Guerra Diagnoses at Discharge Discharge Diagnosis (1) Status post lumbar spinal fusion: Status: Acute Reason for Visit Reason for Visit: M43.16 Physical Exam Narrative: Still complaining of left leg pain. Urinary Catheter Management: Yu: Cath Placed During This Visit: yes, but has since been removed by the nurse Reason for Continuing Indwelling Catheter: Decision to DC Catheter Urinary Catheter Date of Insertion: 03/04/24 Urinary Catheter Time of Insertion: 12:50 Date Urinary Catheter Removed: 03/05/24 Time Urinary Catheter Discontinued: 10:38 Discharge Data Studies Completed and Pending Pending at discharge Category Date Time Status C-arm Fluoroscopy 03177 Routine Exams 03/04/24 10:39 Taken PACKED CELLS [Leukocyte Reduced RBC] Routine Lab 03/04/24 11:32 Results Type and Screen Routine Lab 03/04/24 11:32 Results Laboratory Results Hgb 10.10 g/dL (11.27-16.99) L 03/04/24 22:25 Hct 30.7 % (36-47) L 03/04/24 22:25 Blood Type O Positive 03/04/24 11:32 Rho(D) Type Rh positive 03/04/24 11:32 Antibody Screen Negative 03/04/24 11:32 Crossmatch See Detail 03/04/24 11:32 Vitals Last Vital Signs Temp 100.3 F H 03/06/24 04:00 Pulse 113 H 03/06/24 04:00 Resp 18 03/06/24 04:53 BP 91/57 03/06/24 04:00 Pulse Ox 91 03/06/24 04:00 O2 Del Method Nasal Cannula 03/06/24 04:00 O2 Flow Rate 2 03/05/24 07:24 Discharge Plan Discharge Patient Disposition: Home Condition: Stable Prescriptions: New oxycodone 10 mg tablet 10 mg PO Q4H PRN (Reason: pain) 7 Days Qty: 40 0RF Continued metoprolol succinate 50 mg tablet extended release 24 hr 50 mg PO QPM amlodipine 5 mg tablet 10 mg PO QPM cetirizine 10 mg tablet 10 mg PO DAILY levothyroxine 75 mcg tablet 75 mcg PO DAILY cephalexin 500 mg capsule 500 mg PO DAILY pantoprazole 40 mg tablet,delayed release (DR/EC) 40 mg PO QPM oxybutynin chloride 5 mg tablet extended release 24hr 5 mg PO QPM diclofenac sodium 75 mg tablet,delayed release (DR/EC) 75 mg PO BID topiramate [Topamax] 25 mg tablet 25 mg PO QPM tramadol 50 mg tablet 50 mg PO BID PRN (Reason: pain) Qty: 60 1RF gabapentin 300 mg capsule 600 mg PO QPM Discharge Orders: Discharge Order (Routine); Ordered 03/06/24 Ordered By: Jhon Flanagan Discharge Diet: Advance as tolerated Discharge Activity: Limit activity as instructed Patient Instructions: Opioid Safety Activity Restrictions/Additional Instructions: Thank you for [facility] for your care! The following is a list of instructions, from your provider, to follow upon your discharge to ensure you have the optimal recovery from your recent injury orsurgery. Follow-up care is a mckeon part of your treatment and safety. Be sure to make and go to all appointments, and call your doctor if you are having problems. If you do not already have a follow-up appointment made, call Dr. Flanagan office in the next 1-3 days to make follow up appointment for 1 weeks at [phone]. It is also a good idea to know your test results and keep a list of the medicines you take. Medications will be prescribed for you at your provider's discretion. These medications are to be used as instructed; if they are taken more often that prescribed they will not be refilled early and in most cases will not be refilled at all. > When a refill is needed,you should contact ratna bernal 2-3 business days before your prescription runs out. Medications will NOT be refilled by certified personal trainer providers after hours! > Many pain medications contain Tylenol (Acetaminophen). Do not consume more than 4,000 mg of Tylenol per day in total with any combination ofmedications. > Pain medications can cause constipation. Please use an over the counter stool softener as directed, while taking pain medications. Consulty our local pharmacist with questions or recommendations on stool softeners. If constipation persists, contact our office or your primary care provider. > While under our care,you are not to receive pain medications or other controlled substances from any other provider unless our office is notified and approves. Any attempts to do so will result in refusal to prescribe any further pain medications and possible dismissal from our practice. ? We will change the dressing in 1 week in the clinic. ? Showering is permitted, however we ask that you do not take a bath, sit in a whirlpool / Jacuzzi, or go swimming for 1 month. For only the first 2 days after surgery, lt wilt be necessary for you to cover your wound/dressing with plastic and tape to keep it dry. ? Walking is essential for the healing process after surgery. We wou ld like you to slowly advance your walking. This should be done on relatively flat clear ground (inside or out) or can be done on a treadmill. Remember this goal does not have to happen all at once, slowly increase your distance and duration. This can be broken into more more than one walk per day as tolerated. Patients who walk as directed after surgery rarely require Physical Therapy. In the unlikely event this issue arises your provider will direct hospital staff to make the appropriate arrangements. ? No lifting over 5 pounds {a gallon of milk) or bending/twisting until further notice. Each of these activities places an unnecessary amount of stress onto the body and can impede the delicate healing process. > Instead of bending at the waist, keep your back straight and bend at the knees. > Instead of twisting your torso, keep your back straight and turn your entire body with your feet. ? You may sleep in any position which makes you comfortable. Many pa tients find comfort sleeping in a reclining chair. It is not abnormal to have difficulty sleeping for the first several weeks following your surgery. We recommend trying Benadry! or Tylenol PM as directed to help with your sleeping difficulties. Both medications are over the counter and available withoutprescription. ? NO SMOKING!!! Smoking dramatically increases the probability of developing postoperative wound infections. ? Common complaints after lumbar and/or thoracic spine surgery include, but are not limited to: numbness and/or tingling in the legs, pain around the incision and surrounding tissues, muscle spasms, or stiffness of the middle to low back. Contact our office if these symptoms persist or if an acute change occurs. ? No driving for the first 3-5days, and not while taking narcotics [] until seen at your follow-up appointment and cleared. There are no restrictions for riding on short trips, however if you take a longer trip, arrangements should be made to make regular stops to get out of the vehicle and stretch . ? Swelling is an unfortunate event that will take place with any surgery and is the primary source of your postoperative discomfort. While walking and regular approved activities helps control inflammation, there are additional steps you can take to minimizeswelling. > Place ice over the surgical site and surrounding tissue for twenty minutes, followed by applying a low/medium heat (heating pad) for an additional twenty minutes every 1-2 hours as needed for painrelief. > You may use of over the counter anti-inflammatory medications (Ibuprofen, Motrin, Aleve, Advil, etc) as directed on the package label. These types of medicines wm significantly reduce the amount of discomfort you experience after surgery from swelling. It should be noted that if you have and allergy to any of these medications, or a history of ulcers or kidney disease you should consult you primary care provider prior to starting these medications. Discharge Attestations Time Spent in Discharge Care*: less than 30 min Quality Metrics Clinical Quality Measures [ No reported AMI, CVA or VTE this stay] Coding Level of Care Code Acute Code for Chg Fwd Diagnoses Status post lumbar spinal fusion Z98.1
[2024-03-06 07:52] VITALS: BP 97/60; PULSE 88; RESP 14; TEMP 36.4; O2SAT 91
[2024-03-06 08:56] VITALS: RESP 16
[2024-03-06] MEDS: cetirizine 10 mg Tablet PO (08:56)
[2024-03-06] MEDS: gabapentin 300 mg Capsule 600 MG PO (08:56)
[2024-03-06] MEDS: docusate sodium 100 mg Capsule PO (08:56)
[2024-03-06] MEDS: levothyroxine 75 mcg Tablet PO (09:54)
[2024-03-06] MEDS: ondansetron 2 mg/ML SDV 2 mL 4 MG IVP (10:30)
--- NOTE | 2024-03-06 11:03 | PC.NURSE ---
Hemovac removed at 1030 with minimal bleeding. Covaderm applied.
[2024-03-06 11:05] VITALS: BP 97/60; PULSE 88; RESP 16; TEMP 36.4; O2SAT 91
== END 2024-03-06 11:05 | disposition home or self-care (01) | DRG 454 ==
LOC: MEDSURG 17:43
PROVIDERS: Anesthesiology; Admitting Provider Orthopaedic Surgery; PCP Nurse Practitioner Family; Visit Provider Orthopaedic Surgery
PROC: 0SG00AJ Fusion of Lumbar Vertebral Joint with Interbody Fusion Device, Posterior Approach, Anterior Column, Open Approach (ICD-10-PCS; principal; 2024-03-04 11:55)
PROC: 0SG00AJ Fusion of Lumbar Vertebral Joint with Interbody Fusion Device, Posterior Approach, Anterior Column, Open Approach (ICD-10-PCS; CPT 22612; 2024-03-04 11:55)
PROC: 0SG00AJ Fusion of Lumbar Vertebral Joint with Interbody Fusion Device, Posterior Approach, Anterior Column, Open Approach (ICD-10-PCS; 2024-03-04 11:55)
PROC: 0SG00AJ Fusion of Lumbar Vertebral Joint with Interbody Fusion Device, Posterior Approach, Anterior Column, Open Approach (ICD-10-PCS; CPT 27280; 2024-03-04 11:55)
PROC: 0SG00AJ Fusion of Lumbar Vertebral Joint with Interbody Fusion Device, Posterior Approach, Anterior Column, Open Approach (ICD-10-PCS; CPT 63005; 2024-03-04 11:55)
DX: M43.16 Spondylolisthesis, lumbar region (principal); G97.41 Accidental puncture or laceration of dura during a procedure; I10 Essential (primary) hypertension; K21.9 Gastro-esophageal reflux disease without esophagitis; E07.9 Disorder of thyroid, unspecified; Z85.3 Personal history of malignant neoplasm of breast; Z90.13 Acquired absence of bilateral breasts and nipples
CPT/HCPCS: 36415; 51702; 72100; 76000; 85014; 85018; 86850; 86900; 86920; 97110; 97116; 97161; 97530; C1713; C9359; J0131; J0330; J0690; J1100; J1170; J1644; J1885; J2250; J2270; J2371; J2405; J2704; J2710; J3010; J3370; J3490; J7030; J7120; P9045

== ENCOUNTER → 2024-03-17 08:38 | Outpatient (BNVA) | payer MEDICAID, SELFPAY | PROVIDERS: PCP Nurse Practitioner Family; Visit Provider Orthopaedic Surgery | DX: Z98.1 Arthrodesis status (principal) | CPT/HCPCS: 99024 ==

== ENCOUNTER → 2024-03-31 08:58 | Outpatient (BNVA) | payer MEDICAID, SELFPAY | PROVIDERS: PCP Nurse Practitioner Family; Visit Provider Anesthesiology Pain Medicine | DX: M54.16 Radiculopathy, lumbar region (principal); M43.16 Spondylolisthesis, lumbar region; M47.816 Spondylosis without myelopathy or radiculopathy, lumbar region; M51.36 Other intervertebral disc degeneration, lumbar region; M25.571 Pain in right ankle and joints of right foot; M25.572 Pain in left ankle and joints of left foot; G89.29 Other chronic pain; M47.812 Spondylosis without myelopathy or radiculopathy, cervical region | CPT/HCPCS: 99214 ==

== ENCOUNTER → 2024-04-14 10:44 | Outpatient (BNVA) | payer MEDICAID, SELFPAY | PROVIDERS: PCP Nurse Practitioner Family; Visit Provider Orthopaedic Surgery | DX: Z98.1 Arthrodesis status (principal) | CPT/HCPCS: 72100; 99024 ==

== ENCOUNTER → 2024-06-16 13:38 | Outpatient (BNVA) | payer MEDICAID, SELFPAY | PROVIDERS: PCP Nurse Practitioner Family; Visit Provider Orthopaedic Surgery | DX: Z98.1 Arthrodesis status (principal) | CPT/HCPCS: 72100; 99213 ==

== ENCOUNTER → 2024-09-22 08:15 | Outpatient (BNVA) | payer MEDICAID, SELFPAY | PROVIDERS: PCP Nurse Practitioner Family; Visit Provider Orthopaedic Surgery | DX: Z98.1 Arthrodesis status (principal) | CPT/HCPCS: 72100; 99213 ==

== ENCOUNTER → 2024-12-22 10:34 | Outpatient (BNVA) | payer MEDICARE, MEDICAID, SELFPAY | PROVIDERS: PCP Nurse Practitioner Family; Visit Provider Orthopaedic Surgery | DX: Z98.1 Arthrodesis status (principal) | CPT/HCPCS: 72100; 99213 ==

== ENCOUNTER → 2025-03-23 08:32 | Outpatient (BNVA) | payer MEDICARE, MEDICAID, SELFPAY | PROVIDERS: PCP Nurse Practitioner Family; Visit Provider Orthopaedic Surgery | DX: Z98.1 Arthrodesis status (principal) | CPT/HCPCS: 72100; 99213 ==

== ENCOUNTER → 2025-08-19 14:33 | Outpatient (BNVA) | payer MEDICARE, SELFPAY | PROVIDERS: PCP Nurse Practitioner Family; Referring Provider Orthopaedic Surgery; Visit Provider Specialist | DX: Z98.1 Arthrodesis status (principal); R20.0 Anesthesia of skin; G62.89 Other specified polyneuropathies | CPT/HCPCS: 95909 ==